=== PATIENT | male | born 1990 | race Caucasian/White ===

== ENCOUNTER 2018-06-12 15:18 | Emergency (ER) | payer MEDICAID, OTHER ==
[~2018-06-12] VITALS: Ht 172.7 cm; Wt 99.8 kg
[2018-06-12 15:58] VITALS: BP 126/68
--- NOTE | 2018-06-12 16:23 | NUR ---
PATIENT AMBULATED TO BED 9.
--- NOTE | 2018-06-12 16:25 | NUR ---
BIB SELF. C/O COUGH,SORE THROAT X 3 DAYS. PAIN STATES TO RIGHT SIDE OF THROAT 4/10, ACHING. AFEBRILE. PT STATES OF CHRONIC SORE THROAT ON AND OFF. REDNESS ON THE BACK OF THE THROAT NOTED. NO DIFFICULTY SWALLOWING. NO SOB. EVEN AND UNLABORED BREATHING. HOB UP. BED SIDE RAILS UP X 1. ON LOW BED POSITION, LOCKED. MD MADE AWARE OF PT STATUS.
[2018-06-12] MEDS ORDERED: DEXAMETHASONE 10 MG/ML VIAL IM ONE (16:55)
[2018-06-12] MEDS ORDERED: IBUPROFEN 400 MG TAB PO ONE (16:55)
--- NOTE | 2018-06-12 17:10 | NUR ---
STREP THROAT SWAB OBTAINED. TOLERATED PROCEDURE WELL. SPECIMEN SENT TO LAB.
--- NOTE | 2018-06-12 17:10 | NUR ---
Sandip madrigal in [facility] - 06/12/18 at 1753 by CHRISTOFER STREP THROAT SWAB OBTAINED
--- NOTE | 2018-06-12 18:15 | NUR ---
Patient discharged with v/s stable. Written and verbal after care instructions given and explained. Patient alert, oriented and verbalized understanding of instructions. Ambulatory with steady gait. All questions addressed prior to discharge. ID band removed. Patient advised to follow up with PMD. Rx of NORCO,NAPROSYN given. Patient educated on indication of medication including possible reaction and side effects. Opportunity to ask questions provided and answered.
[2018-06-12 18:26] VITALS: BP 120/75
== END 2018-06-12 18:15 | disposition home or self-care (01) ==
LOC: MED 15:18
DX: J03.90 Acute tonsillitis, unspecified (principal)
CPT/HCPCS: 87081; 96372; 99283; J1100